=== PATIENT | female | born 1960 | race Two or more races ===

== ENCOUNTER 2021-12-28 09:19 | Emergency (ER) | payer MEDICAID, OTHER ==
[~2021-12-28] VITALS: Ht 160 cm; Wt 68.1 kg
[2021-12-28 09:41] VITALS: BP 144/85
[2021-12-28] MEDS ORDERED: KETOROLAC TROMETH 60MG/2ML VIAL IM ONE (10:30)
[2021-12-28] MEDS ORDERED: IBUP800T27 PO (10:32)
== END 2021-12-28 10:46 | disposition home or self-care (01) ==
LOC: ER 09:19
DX: M23.91 Unspecified internal derangement of right knee (principal); Z90.710 Acquired absence of both cervix and uterus
CPT/HCPCS: 73562; 96372; 99283; J1885